=== PATIENT | female | born 1965 | race Two or more races ===

== ENCOUNTER 2022-09-01 10:00 | Inpatient (IN) | payer OTHER ==
[~2022-09-01] VITALS: Ht 170.2 cm; Wt 105.2 kg
[2022-09-10] MEDS ORDERED: LEVSIN/SL0.125 MG SL (13:18)
== END 2022-09-10 15:42 | disposition home or self-care (01) | DRG 331 ==
LOC: O/R 09-07 05:27 → SURH 09-07 10:00
PROVIDERS: ADMIT Surgery; ATTEND Surgery
PROC: 07BC4ZZ Excision of Pelvis Lymphatic, Percutaneous Endoscopic Approach (ICD-10-PCS; 2022-09-07)
PROC: 0DTF4ZZ Resection of Right Large Intestine, Percutaneous Endoscopic Approach (ICD-10-PCS; principal; 2022-09-07 11:00)
DX: D12.2 Benign neoplasm of ascending colon (principal); R59.0 Localized enlarged lymph nodes; D37.4 Neoplasm of uncertain behavior of colon; I10 Essential (primary) hypertension; E66.9 Obesity, unspecified; Z68.36 Body mass index [BMI] 36.0-36.9, adult